=== PATIENT | male | born 1975 | race Caucasian/White ===

== ENCOUNTER 2019-09-27 14:35 | Outpatient (CLI) | payer OTHER ==
--- NOTE | 2019-09-27 15:34 | XRAY Report ---
PROCEDURE: Knee 3 View LT INDICATIONS: KNEE PAIN,LEFT TECHNIQUE: 3 views of the left knee(s) were acquired. COMPARISON: None. FINDINGS: Bones: No fractures or dislocations. No suspicious bony lesions. Scattered subchondral sclerosis a nd spurring. Mild narrowing of the medial joint space. Soft tissues: No joint effusion. No suspicious soft tissue calcifications. IMPRESSION: Mild degenerative changes. If the patient's pain or other symptoms persist, consider fur ther evaluation with MRI. Reviewed by: Lucian Curry MD on 09/27/2019 3:33 PM PDT Approved by: Lucian Curry MD on 09/27/2019 3:33 PM PDT Station ID: [id number]
--- NOTE | 2019-09-27 15:36 | XRAY Report ---
PROCEDURE: Foot 3 View RT INDICATIONS: FOOT JOINT PAIN,RIGHT TECHNIQUE: 3 views of the foot were acquired. COMPARISON: None. FINDINGS: Bones: No fractures or dislocations. No suspicious bony lesions. Large plantar calcaneal spur Soft tissues: No tibiotalar joint effusion. Achilles tendon appears normal. IMPRESSION: Large plantar calcaneal spur Reviewed by: Lucian Curry MD on 09/27/2019 3:35 PM PDT Approved by: Lucian Curry MD on 09/27/2019 3:35 PM PDT Station ID: [id number]
== END 2019-09-27 14:36 | disposition home or self-care (01) ==
LOC: DI 14:35
PROVIDERS: ATTEND Nurse Practitioner Family
DX: M17.12 Unilateral primary osteoarthritis, left knee (principal); M77.31 Calcaneal spur, right foot

== ENCOUNTER 2019-10-13 10:08 | Outpatient (CLI) | payer OTHER ==
[2019-10-13 10:24] LABS: BASOPHILS # (AUTO) 0.1 10^3/uL (0.0-0.1); BASOPHILS % (AUTO) 0.6 %; EOSINOPHILS # (AUTO) 0.3 10^3/uL (0.0-0.7); EOSINOPHILS % (AUTO) 3.9 %; HGB - HEMOGLOBIN 13.9 g/dL (14.0-18.0); LYMPHOCYTES # (AUTO) 1.6 10^3/uL (1.5-3.5); MEAN CORPUSCULAR HEMOGLOBIN 32.4 pg (27.0-31.0); MEAN CORPUSCULAR HGB CONC 33.9 g/dL (32.0-36.0); MEAN CORPUSCULAR VOLUME 95.6 fL (80.0-94.0); MEAN PLATELET VOLUME 9.4 fL (7.4-11.4); MONOCYTES # (AUTO) 0.5 10^3/uL (0.0-1.0); MONOCYTES % (AUTO) 6.5 %; NEUTROPHILS # (AUTO) 5.7 10^3/uL (1.5-6.6); NEUTROPHILS % (AUTO) 69.8 %; PLT - PLATELET COUNT 296 10^3/uL (130-450); RED BLOOD COUNT 4.29 10^6/uL (4.70-6.10); RED CELL DISTRIBUTION WIDTH 13.2 % (12.0-15.0); WHITE BLOOD COUNT 8.2 x10^3/uL (4.8-10.8)
[2019-10-13 10:40] LABS: ALBUMIN 4.2 g/dL (3.2-5.5); ALBUMIN/GLOBULIN RATIO 1.6 (1.0-2.2); ALKALINE PHOSPHATASE 80 IU/L (42-121); ALT ALANINE AMINOTRANSFERASE 26 IU/L (10-60); AST ASPARTATE AMINOTRANSFERASE 25 IU/L (10-42); BILIRUBIN,TOTAL 1.6 mg/dL (0.2-1.0); BUN - BLOOD UREA NITROGEN 24 mg/dL (6-20); CALCIUM 8.8 mg/dL (8.5-10.3); CARBON DIOXIDE - CO2 26 mmol/L (21-32); CHLORIDE 101 mmol/L (101-111); CHOL/HDL RATIO 4.2 (<5.0); CHOLESTEROL 172 mg/dL; CREATININE 0.9 mg/dL (0.6-1.2); GLUCOSE 106 mg/dL (70-100); HDL CHOLESTEROL 41 mg/dL; SODIUM 138 mmol/L (135-145); TOTAL PROTEIN 6.9 g/dL (6.7-8.2)
== END 2019-10-13 10:09 | disposition home or self-care (01) ==
LOC: LAB 10:08
PROVIDERS: ATTEND Nurse Practitioner Family
DX: Z00.00 Encounter for general adult medical examination without abnormal findings (principal)
CPT/HCPCS: 36415; 80053; 80061; 83721; 84443; 85025

== ENCOUNTER 2020-11-18 19:34 | Emergency (ER) | payer SELFPAY ==
[2020-11-18] MEDS ORDERED: TETANUS/DIPHTHERIA/PERTUSSIS 0.5 ML SYRINGE IM ONE (20:52)
[2020-11-18] MEDS ORDERED: cephALEXin 250 MG CAPSULE PO STA (20:52)
--- NOTE | 2020-11-18 20:54 | ED Physician Documentation ---
PD HPI UPPER EXT INJURY - Stated complaint Stated Complaint: LT INDEX FINGER LAC - Chief complaint Chief Complaint: Laceration - History obtained from History obtained from: Patient - History of Present Illness Timing - duration: Hours (10) Timing - details: Abrupt onset Pain level max: 4 Pain level now: 2 Improved by: Rest Worsened by: Moving, Palpating Associated symptoms: No: Weakness, Numbness, Tingling Contributing factors: No: Anticoagulated - Additonal information Additional information: Patient is a 45-year-old male who presents to the emergency department with a left index finger laceration. This occurred proximately 10 hours prior to arrival on a screw. States the bleeding took a while to stop. Has now stopped bleeding. Unknown last tetanus. Nothing makes it better or worse. Patient also states that he had a bladder stimulator placed about a month ago, follow-up appointment was a week ago. Today he has noticed a small amount of drainage from the wound site. Concerned about potential infection. No fever. No chills. Patient is right handed. Review of Systems Constitutional: denies: Fever Skin: denies: Rash Musculoskeletal: reports: Other (Patient also states that he had a bladder implants placed about a month and a half ago. A few days ago he started noticing a small amount of drainage from the wound. Concerned about potential infection.) PD PAST MEDICAL HISTORY - Past Medical History Past Medical History: Yes : Incontinence - Past Surgical History Past Surgical History: Yes - Present Medications Home Medications: Ambulatory Orders Medication Instructions Recorded Confirmed Fluoxetine HCl [Prozac] 40 mg PO DAILY 11/18/20 11/18/20 Nortriptyline [Pamelor] 25 mg PO QPM 11/18/20 11/18/20 Tamsulosin [Flomax] 1 cap PO DAILY 11/18/20 11/18/20 cephALEXin [Keflex] 500 mg PO Q6H #28 cap 11/18/20 - Allergies Allergies/Adverse Reactions: Allergies Allergy/AdvReac Type Severity Reaction Status Date / Time No Known Drug Allergies Allergy Verified 11/18/20 19:47 - Social History Does the pt smoke?: No Smoking Status: Never smoker Does the pt drink ETOH?: No Does the pt have substance abuse?: Yes Substance Use and Type: Marijuana - Immunizations Immunizations are current?: No PD ED PE NORMAL - Vitals Vital signs reviewed: Yes - General General: Alert and oriented X 3, No acute distress - HEENT HEENT: Moist mucous membranes - Neck Neck: Supple, no meningeal sign - Cardiac Cardiac: RRR - Respiratory Respiratory: No respiratory distress, Clear bilaterally - Back Back: Other (Incision to the right low lumbar area. There is a minimal amount of erythema and a very small amount of drainage near the incision.) - Derm Derm: Warm and dry - Neuro Neuro: Alert and oriented X 3 - Psych Psych: Normal mood, Normal affect PD ED PE EXPANDED - Extremities ARMAND UE/Hands Visual: 1 - laceration (1.5 cm, linear. Gaping. Neurovascularly intact. Into subcutaneous fat) Results - Vitals Vitals: Vital Signs - 24 hr 11/18/20 11/18/20 19:43 21:02 Temperature 36.5 C 36.5 C Heart Rate 79 68 Respiratory 16 16 Rate Blood Pressure 130/99 H 126/89 H O2 Saturation 99 97 Oxygen O2 Source Room air Procedures - Laceration (location) Left index finger Length in cm: 1.5 Wound type: Linear, Into subcut fat, Clean Neurovascular status: Sensory intact, Motor intact, Vascular intact Tendon involvement: Tendon intact Wound preparation: Irrigated copiously NS Skin layer closure: Dermabond (T ring closure system) Other: Patient tolerated well, No complications, Neurovascular intact PD MEDICAL DECISION MAKING - ED course Complexity details: considered differential, d/w patient ED course: Patient with a laceration to the left index finger. There is significant swelling as the injury occurred about 10 hours prior to arrival. The skin appears thin and due to the swelling does not appear that it can be closed adequately with sutures. Likely will rip the sutures through the skin given the tension. Therefore the T ring closure system was utilized. Patient tolerated this well. Tdap given. Warnings of infection and instructions on wound care given at bedside. Also counseled on how to minimize scarring. Patient counseled regarding signs and symptoms for which I believe and urgent re-evaluation would be necessary. Patient with good understanding of and agreement to plan and is comfortable going home at this time This document was made in part using voice recognition software. While efforts are made to proofread this document, sound alike and grammatical errors may occur. Departure - Departure Disposition: 01 Home, Self Care Clinical Impression: Postoperative wound infection Finger laceration Qualifiers: Encounter type: initial encounter Finger: index finger Damage to nail status: without damage Foreign body presence: without foreign body Laterality: left Qualified Code(s): S61.211A - Laceration without foreign body of left index finger without damage to nail, initial encounter Condition: Good Instructions: ED Laceration Hand Follow-Up: your,doctor in 1 week [Other] Prescriptions: cephALEXin [Keflex] 500 mg PO Q6H #28 cap Comments: Take all antibiotics until gone. Follow-up with your doctor for further care. Return if you worsen. Discharge Date/Time: 11/18/20 21:08
[2020-11-18 21:03] VITALS: BP 126/89
== END 2020-11-18 21:08 | disposition home or self-care (01) ==
LOC: ED 19:34
DX: S61.211A Laceration without foreign body of left index finger without damage to nail, initial encounter (principal); W29.8XXA Contact with other powered hand tools and household machinery, initial encounter; T81.49XA Infection following a procedure, other surgical site, initial encounter; Y83.8 Other surgical procedures as the cause of abnormal reaction of the patient, or of later complication, without mention of misadventure at the time of the procedure; Z23 Encounter for immunization
CPT/HCPCS: 12001; 90471; 90715; 99283; 99284; A9270

== ENCOUNTER 2021-07-09 09:21 | Outpatient (CLI) | payer OTHER ==
--- NOTE | 2021-07-09 10:41 | XRAY Report ---
PROCEDURE: Hip w/Pelvis 1V RT INDICATIONS: STRAIN OF ADDUCTOR MUSCLE, FASCIA AND TENDON OF R THIGH TECHNIQUE: AP pelvis with lateral view(s) of the right hip(s). COMPARISON: None. FINDINGS: Bones: No fractures or dislocations. Pelvic ring appears intact. Round lucency at the anterior supe rior aspect of the right femoral neck is noted likely representing a synovial herniation pit. Soft tissues: The visualized bowel gas pattern is normal. No suspicious soft tissue calcifications. IMPRESSION: 1. Synovial herniation pit. These are generally and incidental finding; however can be associated wit h femoral acetabular impingement. Reviewed by: Bibiana Glass MD on 07/09/2021 10:40 AM PDT Approved by: Bibiana Glass MD on 07/09/2021 10:40 AM PDT Station ID: [id number]
== END 2021-07-09 09:22 | disposition home or self-care (01) ==
LOC: DI.N 09:21
PROVIDERS: ATTEND Physician Assistant
DX: S76.211D Strain of adductor muscle, fascia and tendon of right thigh, subsequent encounter (principal); R10.31 Right lower quadrant pain; M67.251 Synovial hypertrophy, not elsewhere classified, right thigh

== ENCOUNTER 2021-08-15 07:04 | Outpatient (CLI) | payer BC ==
[2021-08-15 12:12] LABS: ALBUMIN/GLOBULIN RATIO 1.3 (1.0-2.2); ALKALINE PHOSPHATASE 89 IU/L (42-121); ALT ALANINE AMINOTRANSFERASE 20 IU/L (10-60); AST ASPARTATE AMINOTRANSFERASE 23 IU/L (10-42); BILIRUBIN,TOTAL 0.8 mg/dL (0.2-1.0); BUN - BLOOD UREA NITROGEN 28 mg/dL (6-20); CALCIUM 9.1 mg/dL (8.5-10.3); CARBON DIOXIDE - CO2 29 mmol/L (21-32); CHLORIDE 103 mmol/L (101-111); CHOL/HDL RATIO 3.7 (<5.0); CHOLESTEROL 175 mg/dL; CREATININE 0.9 mg/dL (0.6-1.2); GFR - MDRD 92 (>89); GLUCOSE 103 mg/dL (70-100); HDL CHOLESTEROL 47 mg/dL; POTASSIUM 4.3 mmol/L (3.5-5.0); SODIUM 141 mmol/L (135-145); TOTAL PROTEIN 7.2 g/dL (6.7-8.2); TRIGLYCERIDES 25 mg/dL
[2021-08-15 12:18] LABS: BASOPHILS # (AUTO) 0.1 10^3/uL (0.0-0.1); BASOPHILS % (AUTO) 1.1 %; EOSINOPHILS # (AUTO) 0.3 10^3/uL (0.0-0.7); EOSINOPHILS % (AUTO) 3.6 %; HCT - HEMATOCRIT 42.9 % (42.0-52.0); HGB - HEMOGLOBIN 13.9 g/dL (14.0-18.0); LYMPHOCYTES # (AUTO) 1.7 10^3/uL (1.5-3.5); LYMPHOCYTES % (AUTO) 23.7 %; MEAN CORPUSCULAR HEMOGLOBIN 31.7 pg (27.0-31.0); MEAN CORPUSCULAR HGB CONC 32.4 g/dL (32.0-36.0); MEAN CORPUSCULAR VOLUME 97.7 fL (80.0-94.0); MEAN PLATELET VOLUME 10.3 fL (7.4-11.4); MONOCYTES # (AUTO) 0.5 10^3/uL (0.0-1.0); MONOCYTES % (AUTO) 7.5 %; NEUTROPHILS # (AUTO) 4.6 10^3/uL (1.5-6.6); NEUTROPHILS % (AUTO) 63.8 %; PLT - PLATELET COUNT 333 10^3/uL (130-450); RED BLOOD COUNT 4.39 10^6/uL (4.70-6.10); RED CELL DISTRIBUTION WIDTH 12.5 % (12.0-15.0); WHITE BLOOD COUNT 7.2 x10^3/uL (4.8-10.8)
== END 2021-08-15 07:05 | disposition home or self-care (01) ==
LOC: LAB.N 07:04
PROVIDERS: ATTEND Physician Assistant
DX: Z13.220 Encounter for screening for lipoid disorders (principal); Z79.899 Other long term (current) drug therapy
CPT/HCPCS: 36415; 80053; 80061; 83721; 85025

== ENCOUNTER 2021-10-29 12:48 | Outpatient (CLI) | payer OTHER, BC ==
--- NOTE | 2021-10-29 17:00 | MRI Report ---
PROCEDURE: Hip RT W/O INDICATIONS: RIGHT FOOT DROP TECHNIQUE: Noncontrast coronal T1 spin echo and STIR through the bony pelvis. Coronal and axial T2 fast spin ec ho with fat saturation, sagittal T1 spin echo, and oblique axial T2 fast spin echo with fat saturatio n through the hip. COMPARISON: Plain films of the hip and pelvis dated 07/09/2021 FINDINGS: Image quality: Excellent. Bones and joints: Mild periarticular osteophyte formation at the bilateral hip joints. Mild subchond ral degenerative marrow edema within the bilateral superior acetabula. Bone marrow of the pelvic ring and proximal femurs show normal signal throughout. No intraosseous lesions or fractures. No avascu lar necrosis of the femoral heads. The visualized lower lumbar spine appears normally aligned. Tendons: The gluteus medius and minimus tendons appear intact, without associated muscle atrophy. M ild T2 signal elevation at the femoral insertion site of the right gluteus medius and minimus tendons . The iliopsoas tendon appears intact, without adjacent bursal fluid collections. The origin of the hamstring tendon is intact at the ischial tuberosity. Mild T2 signal elevation within the proximal h amstring tendon. Labrum and cartilage: Amorphous high signal in the right superolateral and posterior hip labrum. New phous high signal intensity within the left superolateral hip labrum. Cartilage surface of the femora l head appears of normal thickness. The alpha angle of the femur is within normal limits at less tiffany n 55 degrees. Soft tissues: Visualized muscles demonstrate normal bulk and internal signal. The proximal sciatic neurovascular bundle appears normal adjacent to the hamstring tendons. No free pelvic fluid. Bladde r wall thickness is normal. Genitourinary structures and bowel loops appear normal where visualized. IMPRESSION: 1. Bilateral hip osteoarthritis with degenerative hip labral tearing bilaterally. 2. Mild right hamstring tendinitis. 3. Mild insertional tendinitis of the right gluteus medius and minimus tendons. Reviewed by: Karson Baker MD on 10/29/2021 4:59 PM PDT Approved by: Karson Baker MD on 10/29/2021 4:59 PM PDT Station ID: [id number]
== END 2021-10-29 12:49 | disposition home or self-care (01) ==
LOC: DI 12:48
PROVIDERS: ATTEND Physician Assistant
DX: M21.371 Foot drop, right foot (principal); S76.211D Strain of adductor muscle, fascia and tendon of right thigh, subsequent encounter; M16.0 Bilateral primary osteoarthritis of hip; S73.192A Other sprain of left hip, initial encounter; S73.191A Other sprain of right hip, initial encounter; M76.891 Other specified enthesopathies of right lower limb, excluding foot

== ENCOUNTER 2022-01-29 07:41 | Outpatient (CLI) | payer BC ==
[~2022-01-29 07:41] MED LIST: GADOBUTROL 15 MMOL/15 ML VIAL ONE
[2022-01-29] MEDS ORDERED: GADOBUTROL 15 MMOL/15 ML VIAL IVP ONE (14:21)
--- NOTE | 2022-01-29 15:32 | MRI Report ---
PROCEDURE: THORACIC SPINE W/WO INDICATIONS: RIGHT FOOT DROP, CLONUS, HYPERREFLEXIA CONTRAST: 10.4 TECHNIQUE: Noncontrast sagittal T1 spin echo and T2 fast spin echo, sagittal STIR, axial T1 and T2 fast spin ech o through the thoracic spine. After the administration of contrast, axial and sagittal T1 spin echo with fat saturation through the thoracic spine. COMPARISON: None. FINDINGS: Within the spinal canal there is what appears to be an extradural mass with a broad dural base and as sociated dural tail posteriorly. The mass measures approximately 2.3 cm craniocaudal, 1.4 cm transver se, and 1.3 cm anteroposterior. There is avid enhancement of the mass. The mass produces severe spina l canal stenosis with marked deformation and flattening of the cord to a maximum thickness of 3 mm. T here is elevated T2 signal of the cord and probably some cord staining indicating compressive myeloma lacia are detected in place, although this is not definitive the lesion is located at the T4 level wi th the inferior aspect being at the T4-T5 disc space and upper T5 endplate level. Nonspecific mild anterior wedging of the T5 vertebral body. Remaining vertebral body heights maintain ed. No suspicious focus of enhancement or signal in the marrow space. No significant degenerative rima nges present IMPRESSION: Avidly enhancing spinal canal extra-medullary mass measuring approximately 1.3 x 1.4 x 2.3 cm produci ng severe spinal canal stenosis. This is most likely a meningioma. Surgical consultation recommended. Reviewed by: Freddy Valentino MD on 01/29/2022 3:31 PM PDT Approved by: Freddy Valentino MD on 01/29/2022 3:31 PM PDT Station ID: [id number]
--- NOTE | 2022-01-29 15:36 | MRI Report ---
PROCEDURE: LUMBAR SPINE W/WO INDICATIONS: RIGHT FOOT DROP, CLONUS, HYPERREFLEXIA CONTRAST: 10.4 TECHNIQUE: Noncontrast sagittal T1 spin echo and T2 fast spin echo, sagittal STIR, axial T1 and T2 fast spin ech o through the lumbar spine. In cases with scoliosis, additional coronal T2 fast spin echo may be per formed. After the administration of contrast, sagittal and axial T1 spin echo with fat saturation th rough the lumbar spine. COMPARISON: None. FINDINGS: Image quality: Excellent. Alignment and curvature: There is normal bony alignment. Marrow: Marrow is of normal overall signal. No acute vertebral body compression fractures. No susp icious marrow enhancement. Spinal cord: Normal morphology and signal intensity of the distal thoracic cord. Normal position and appearance of the conus. Cauda equina nerve roots unremarkable. Regional soft tissues: No suspicious signal in the regional soft tissues. At L3-L4, diffuse disc bulge and a superimposed broad-based posterior disc protrusion flatten and ind ent the ventral thecal sac. Mild displacement of the descending left L4 nerve roots in the left subar ticular zone. Mild left greater than right neural foraminal narrowing due to foraminal components of the disc bulge and facet hypertrophy. L4-L5, diffuse disc bulge without mass effect upon the traversing L5 nerve roots. Mild and neural for aminal narrowing due to foraminal components of the disc bulge and facet hypertrophy. At L5-S1, diffuse disc bulge without mass effect on the traversing S1 nerve roots. No significant atif ral foraminal stenosis. IMPRESSION: Mild lower lumbar spine findings degenerative changes without evidence of focal nerve root impingemen t. Reviewed by: Freddy Valentino MD on 01/29/2022 3:34 PM PDT Approved by: Freddy Valentino MD on 01/29/2022 3:34 PM PDT Station ID: [id number]
== END 2022-01-29 07:42 | disposition home or self-care (01) ==
LOC: DI 07:41
PROVIDERS: ATTEND Psychiatry & Neurology Neurology
DX: M21.371 Foot drop, right foot (principal); R25.8 Other abnormal involuntary movements; R29.2 Abnormal reflex; R20.0 Anesthesia of skin; R20.2 Paresthesia of skin; D48.0 Neoplasm of uncertain behavior of bone and articular cartilage; M48.04 Spinal stenosis, thoracic region; M51.26 Other intervertebral disc displacement, lumbar region; M47.816 Spondylosis without myelopathy or radiculopathy, lumbar region
CPT/HCPCS: 72157; 72158; A9585

== ENCOUNTER 2022-07-29 08:53 | Outpatient (CLI) | payer OTHER ==
[2022-07-29 11:50] LABS: BASOPHILS # (AUTO) 0.1 10^3/uL (0.0-0.1); BASOPHILS % (AUTO) 1.3 %; EOSINOPHILS # (AUTO) 0.2 10^3/uL (0.0-0.7); EOSINOPHILS % (AUTO) 3.3 %; HGB - HEMOGLOBIN 13.9 g/dL (14.0-18.0); LYMPHOCYTES % (AUTO) 28.4 %; MEAN CORPUSCULAR HEMOGLOBIN 31.6 pg (27.0-31.0); MEAN CORPUSCULAR HGB CONC 32.3 g/dL (32.0-36.0); MEAN CORPUSCULAR VOLUME 97.7 fL (80.0-94.0); MEAN PLATELET VOLUME 9.7 fL (7.4-11.4); MONOCYTES # (AUTO) 0.5 10^3/uL (0.0-1.0); MONOCYTES % (AUTO) 6.8 %; NEUTROPHILS # (AUTO) 4.2 10^3/uL (1.5-6.6); NEUTROPHILS % (AUTO) 59.8 %; PLT - PLATELET COUNT 353 10^3/uL (130-450); RED CELL DISTRIBUTION WIDTH 13.4 % (12.0-15.0); WHITE BLOOD COUNT 7.1 x10^3/uL (4.8-10.8)
[2022-07-29 12:29] LABS: ALBUMIN 4.3 g/dL (3.2-5.5); ALBUMIN/GLOBULIN RATIO 1.4 (1.0-2.2); ALKALINE PHOSPHATASE 96 IU/L (42-121); ALT ALANINE AMINOTRANSFERASE 20 IU/L (10-60); AST ASPARTATE AMINOTRANSFERASE 20 IU/L (10-42); BILIRUBIN,TOTAL 0.9 mg/dL (0.2-1.0); BUN - BLOOD UREA NITROGEN 25 mg/dL (6-20); CALCIUM 9.1 mg/dL (8.5-10.3); CARBON DIOXIDE - CO2 29 mmol/L (21-32); CHLORIDE 103 mmol/L (101-111); CHOL/HDL RATIO 4.6 (<5.0); CHOLESTEROL 210 mg/dL; CREATININE 0.9 mg/dL (0.6-1.2); GFR - MDRD 91 (>89); GLUCOSE 107 mg/dL (70-100); HDL CHOLESTEROL 46 mg/dL; LDL CHOLESTEROL,CALCULATED 152 mg/dL; LDL/HDL RATIO 3.3 (<3.6); SODIUM 140 mmol/L (135-145); TOTAL PROTEIN 7.3 g/dL (6.7-8.2); TRIGLYCERIDES 58 mg/dL; VLDL CHOLESTEROL 12 mg/dL
== END 2022-07-29 08:54 | disposition home or self-care (01) ==
LOC: LAB.N 08:53
PROVIDERS: ATTEND Physician Assistant
DX: D32.1 Benign neoplasm of spinal meninges (principal); Z13.220 Encounter for screening for lipoid disorders; Z80.42 Family history of malignant neoplasm of prostate
CPT/HCPCS: 36415; 80053; 80061; 83721; 84153; 85025

== ENCOUNTER 2023-02-08 08:48 | Outpatient (CLI) | payer OTHER ==
[2023-02-08] MEDS ORDERED: GADOTERATE MEGLUMINE 10 MMOL/20 ML VIAL ONE (09:58)
--- NOTE | 2023-02-08 11:57 | MRI Report ---
PROCEDURE: THORACIC SPINE W/WO INDICATIONS: THORACIC SPINE TUMOR CONTRAST: clariscan 20ml TECHNIQUE: Noncontrast sagittal T1 spin echo and T2 fast spin echo, sagittal STIR, axial T1 and T2 fast spin ech o through the thoracic spine. After the administration of contrast, axial and sagittal T1 spin echo with fat saturation through the thoracic spine. COMPARISON: MR thoracic spine 01/29/2022. FINDINGS: Image quality: Excellent. Alignment and curvature: There is normal bony alignment. Marrow: Postsurgical changes from T3 mass resection and through T5 posterior spinal fixation. Evaluat ion for residual tumor is limited secondary to hardware artifact. No definite residual or recurrent t umor is seen. Marrow is of normal overall signal. No acute vertebral body compression fractures. Sta ble mild anterior wedging of the T5 vertebral body. Stable scattered vertebral body hemangiomas. Spinal cord: Visualized spinal cord is of normal signal and size, without abnormal enhancement. Paraspinous soft tissues: No paravertebral masses or abnormal enhancement. Miscellaneous: Central canal and foramina appear widely patent at all scanned levels. IMPRESSION: Postsurgical changes from mass resection and posterior spinal fixation. Evaluation is limited at this level secondary to artifact, no definite residual or recurrent tumor is seen. Reviewed by: Ramírez Patel MD on 02/08/2023 11:56 AM PDT Approved by: Ramírez Patel MD on 02/08/2023 11:56 AM PDT Station ID: [id number]
--- NOTE | 2023-02-08 12:19 | CT Report ---
PROCEDURE: THORACIC SPINE WO INDICATIONS: THORACIC SPINE TUMOR TECHNIQUE: Noncontrast 3 mm thick sections acquired through the region of interest in the thoracic spine. Sagit ezekiel and coronal reformats were then constructed. For radiation dose reduction, the following was used : automated exposure control, adjustment of mA and/or kV according to patient size. COMPARISON: MR thoracic spine 01/29/2022. FINDINGS: Image quality: Excellent. Bones: There is normal overall bony alignment. Postoperative changes from mass resection and T3-T5 p osterior spinal fixation. The hardware appears intact and appropriately positioned Stable appearance of anterior wedging of the T5 vertebral body. No acute vertebral body compression fractures. No sandra picious sclerotic or lytic bony lesions. Central spinal canal is of normal overall caliber. Mild de generative changes of the thoracic spine with degenerative endplate changes and osteophyte formation. Soft tissues: No paravertebral masses or hematomas. Visualized posteromedial lungs appear clear. IMPRESSION: Postop changes from resection of mass and T3-T5 posterior spinal fixation. Hardware appears intact an d appropriately positioned without evidence of interval complication. Evaluation for residual tumor i s limited on CT and by streak artifact. Reviewed by: Ramírez Patel MD on 02/08/2023 12:18 PM PDT Approved by: Ramírez Patel MD on 02/08/2023 12:18 PM PDT Station ID: [id number]
[2023-02-08] MEDS ORDERED: GADOTERATE MEGLUMINE 10 MMOL/20 ML VIAL IVP ONE (16:32)
== END 2023-02-08 08:49 | disposition home or self-care (01) ==
LOC: DI 08:48
PROVIDERS: ATTEND Neurological Surgery
DX: D49.7 Neoplasm of unspecified behavior of endocrine glands and other parts of nervous system (principal); Z98.1 Arthrodesis status
CPT/HCPCS: 72128; 72157; A9575

== ENCOUNTER 2023-04-02 08:00 | Outpatient (CLI) | payer OTHER | END 2023-04-02 23:59 | disposition home or self-care (01) | LOC: LAB.N 08:00 | PROVIDERS: ATTEND Internal Medicine | DX: J34.89 Other specified disorders of nose and nasal sinuses (principal) | CPT/HCPCS: 87070; 87181; 87205; 87640 ==

== ENCOUNTER 2023-10-07 09:17 | Outpatient (CLI) | payer OTHER ==
[2023-10-07 12:16] LABS: BASOPHILS # (AUTO) 0.1 10^3/uL (0.0-0.1); BASOPHILS % (AUTO) 0.9 %; EOSINOPHILS # (AUTO) 0.2 10^3/uL (0.0-0.7); EOSINOPHILS % (AUTO) 3.7 %; HCT - HEMATOCRIT 44.9 % (42.0-52.0); HGB - HEMOGLOBIN 14.7 g/dL (14.0-18.0); LYMPHOCYTES # (AUTO) 1.6 10^3/uL (1.5-3.5); LYMPHOCYTES % (AUTO) 25.3 %; MEAN CORPUSCULAR HEMOGLOBIN 32.2 pg (27.0-31.0); MEAN CORPUSCULAR HGB CONC 32.7 g/dL (32.0-36.0); MEAN CORPUSCULAR VOLUME 98.5 fL (80.0-94.0); MEAN PLATELET VOLUME 10.1 fL (7.4-11.4); MONOCYTES # (AUTO) 0.4 10^3/uL (0.0-1.0); MONOCYTES % (AUTO) 6.6 %; NEUTROPHILS # (AUTO) 4.1 10^3/uL (1.5-6.6); NEUTROPHILS % (AUTO) 63.3 %; PLT - PLATELET COUNT 335 10^3/uL (130-450); RED BLOOD COUNT 4.56 10^6/uL (4.70-6.10); WHITE BLOOD COUNT 6.5 x10^3/uL (4.8-10.8)
[2023-10-07 12:53] LABS: ALBUMIN 4.4 g/dL (3.2-5.5); ALBUMIN/GLOBULIN RATIO 1.6 (1.0-2.2); ALKALINE PHOSPHATASE 95 IU/L (42-121); ALT ALANINE AMINOTRANSFERASE 25 IU/L (10-60); AST ASPARTATE AMINOTRANSFERASE 24 IU/L (10-42); BUN - BLOOD UREA NITROGEN 32 mg/dL (6-20); CALCIUM 9.7 mg/dL (8.5-10.3); CARBON DIOXIDE - CO2 31 mmol/L (21-32); CHLORIDE 104 mmol/L (101-111); CHOL/HDL RATIO 3.8 (<5.0); CHOLESTEROL 181 mg/dL; GFR - MDRD 80 (>89); GLUCOSE 97 mg/dL (74-104); HDL CHOLESTEROL 48 mg/dL; LDL CHOLESTEROL,CALCULATED 121 mg/dL; LDL/HDL RATIO 2.5 (<3.6); POTASSIUM 4.5 mmol/L (3.5-4.5); SODIUM 139 mmol/L (135-145); TOTAL PROTEIN 7.2 g/dL (6.4-8.9); TRIGLYCERIDES 60 mg/dL (48-352); VLDL CHOLESTEROL 12 mg/dL
[2023-10-07 12:54] LABS: ESTIMATED AVERAGE GLUCOSE 108 mg/dL (70-100); HEMOGLOBIN A1c% 5.4 % (4.27-6.07)
== END 2023-10-07 09:18 | disposition home or self-care (01) ==
LOC: LAB.N 09:17
PROVIDERS: ATTEND Physician Assistant
DX: Z00.00 Encounter for general adult medical examination without abnormal findings (principal); Z13.220 Encounter for screening for lipoid disorders; Z80.42 Family history of malignant neoplasm of prostate; R73.01 Impaired fasting glucose
CPT/HCPCS: 36415; 80053; 80061; 83036; 83721; 84153; 85025

== ENCOUNTER 2023-12-21 12:08 | Day surgery (SDC) | payer MEDICAID, OTHER ==
[2023-12-21 12:28] VITALS: BP 118/66; O2SAT 98
[2023-12-21] MEDS ORDERED: PROPOFOL 500 MG/50 ML 500 MG/50 ML VIAL ONE (12:34)
[2023-12-21] MEDS ORDERED: LIDOCAINE-MPF 2% 5 ML VIAL ONE (12:36)
--- NOTE | 2023-12-21 12:42 | ANESTHESIA ---
Pre-Anesthesia VS, & Labs - Diagnosis screening - Procedure colonoscopy Vital Signs: Temp Pulse Resp BP Pulse Ox O2 Flow Rate 36.2 C L 70 17 118/66 98 12/21/23 12:24 12/21/23 12:24 12/21/23 12:24 12/21/23 12:24 12/21/23 12:24 Height: 5 ft 9 in Weight (kg): 98 kg Body Mass Index: 31.8 BMI Classification: Obese - NPO >8 hours Home Medications and Allergies Fluoxetine HCl [Prozac] 40 mg PO DAILY 11/18/20 Nortriptyline [Pamelor] 25 mg PO QPM 11/18/20 Tamsulosin [Flomax] 1 cap PO DAILY 11/18/20 Allergies/Adverse Reactions: Allergies Allergy/AdvReac Type Severity Reaction Status Date / Time No Known Drug Allergies Allergy Verified 11/18/20 19:47 Anes History & Medical History - Anesthetic History Anesthesia Complications: reports: No previous complications, Other-see comment (pt reports previous anesthesia without incident except for one case (PNS) he was told "they had to wake me up after anesthesia and said they couldn't proceed" Pt was not given any other details.) Family history of Anesthesia Complications: Denies Family history of Malignant Hyperthermia: Denies - Medical History Cardiovascular: reports: None Pulmonary: reports: None Gastrointestinal: reports: None Urinary: reports: Frequency Neuro: reports: Other (chronic back pain) Musculoskeletal: reports: None Endocrine/Autoimmune: reports: None Skin: reports: None Smoking Status: Never smoker History of Cancer?: Yes (skin) - Surgical History Orthopedic: reports: Other (multiple back surgeries, thoracic fusion, nerve stimulator (not currently on)) Dermatologic: reports: Skin cancer surgery Exam General: Alert, Oriented x3, Cooperative Dental: WNL Mouth Openin Fingerbreadth Neck Mobility: Normal Mallampati classification: I Thyromental Distance: 4-6 cm Respiratory: Lungs clear Cardiovascular: Regular rate Plan Anesthesia Type: General, Total IV Consent for Procedure(s) Verified and Reviewed: Yes Code Status: Attempt Resuscitation ASA classification: 2-Mild systemic disease Is this case an emergency?: No
[2023-12-21] MEDS: LACTATED RINGERS 1,000 ML IV ONE ×2 (12:48→14:06)
[2023-12-21] MEDS ORDERED: MIDAZOLAM 2 MG/2 ML VIAL ONE (12:49)
[2023-12-21] MEDS ORDERED: PROPOFOL 200 MG/20 ML VIAL IVP ONE (13:49)
[2023-12-21] MEDS ORDERED: fentaNYL 100 MCG/2 ML VIAL ONE (13:53)
--- NOTE | 2023-12-21 14:33 | ANESTHESIA POST OP EVALUATION ---
Anesthesia Post Eval - Post Anesthesia Eval Vitals: Last Vital Signs Temp 36.2 C L 12/21/23 12:24 Pulse 70 12/21/23 12:24 Resp 17 12/21/23 12:24 BP 118/66 12/21/23 12:24 Pulse Ox 98 12/21/23 12:24 O2 Flow Rate CV Function Including HR & BP: Stable Pain Control: Satisfactory Nausea & Vomiting: Negative Mental Status: Baseline Respiratory Status: Airway Patent Hydration Status: Satisfactory Anesthesia Complications: None
== END 2023-12-21 12:09 | disposition home or self-care (01) ==
LOC: SDS 12:08
PROVIDERS: ATTEND Surgery
DX: Z12.11 Encounter for screening for malignant neoplasm of colon (principal); E66.9 Obesity, unspecified; Z80.0 Family history of malignant neoplasm of digestive organs; Z68.31 Body mass index [BMI] 31.0-31.9, adult
CPT/HCPCS: 45378; J7120

== ENCOUNTER 2023-12-28 10:30 | Outpatient (CLI) | payer MEDICAID ==
--- NOTE | 2023-12-28 13:21 | XRAY Report ---
PROCEDURE: Knee 1-2V RT INDICATIONS: KNEE PAIN, RIGHT TECHNIQUE: 2 views of the knee(s) were acquired. COMPARISON: None. FINDINGS: Bones: No fracture or dislocation. The right knee joint space appears unremarkable. No suspicious os seous lesions. Soft tissues: No significant knee joint effusion. No suspicious soft tissue calcifications or masses . IMPRESSION: No acute osseous abnormality. Reviewed by: Jose Diaz MD on 12/28/2023 1:19 PM PDT Approved by: Joes Diaz MD on 12/28/2023 1:19 PM PDT Station ID: [id number]
== END 2023-12-28 10:45 | disposition home or self-care (01) ==
LOC: DI.N 10:30
PROVIDERS: ATTEND Physician Assistant Medical
DX: M25.561 Pain in right knee (principal)